=== PATIENT | male | born 1945 | race Caucasian/White ===

== ENCOUNTER 2018-12-16 15:25 | Emergency (ER) | payer MEDICARE, SELFPAY ==
[2018-12-16 15:35] VITALS: BP 122/65; PULSE 64; RESP 18; TEMP 37.5; O2SAT 96
--- NOTE | 2018-12-16 15:57 | W.ED.GENAD ---
Discharge Plan Disposition Patient Disposition: HOME Condition: Stable Discharge Details Chief Complaint: Orthopedic Clinical Impression: Arthritis of right knee Primary Care Provider: Efren Loya ED Provider: Cricket Jacobo Home Meds and New Rx's Prescriptions: Continued atorvastatin 40 mg Tablet 40 mg PO HS RF: 0 citalopram 10 mg Tablet 10 mg PO DAILY RF: 0 nitroglycerin [Nitrostat] 0.4 mg Tablet, Sublingual 1 mg Sublingual PRN PRNRF: 0 aspirin 81 mg Tablet,Chewable 81 mg PO DAILY RF: 0 metoprolol succinate 25 mg Tablet Extended Release 24 Hr 25 mg PO DAILY RF: 0 celecoxib [Celebrex] 100 mg Capsule 1 mg PO BID Qty: 30 RF: 0 Discharge Instructions Instructions: Arthritis (ED) Additional Instructions: follow up with your primary care provider as scheduled on December 27 if you have new symptoms such as fevers or severe worsening of pain return to the emergency department Medical Decision Making 72 yo male with 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 Denies any falls or trauma, no fevers. Has no erythema, warmth or swelling and no leg swelling or calf pain .Has full rom and able to bear weight so doubt fx .I suspect he does have djd, offered xray but he declined. Has no findings to suggest septic joint or dvt at this time. He can't get into his pcp for 10 or so days and staes he wants celebrex prescription which I will prescribe. Advied f/u with pcp and return precautions Differential Diagnosis osteoarthritis, gout HPI General Mode of arrival: ambulatory. Date/Time Provider Initiated Documentation: 12/16/18 15:46. Limitations to Documentation: no limitations. Information obtained by: patient. History of Present Illness 72 year old M presents to the emergency department with the chief complaint of right knee pain, described as moderate, Quality is described as aching, and is localized to the right and lower extremity. Patient reports no radiation. Patient started experiencing this year(s) (2) and it has been intermittent. No relieving factors improve symptom(s), No exacerbating factors reported . Patient notes no other symptoms.. Related Data Home Medications Medication Instructions Recorded Confirmed aspirin 81 mg PO DAILY 12/16/18 12/16/18 atorvastatin 40 mg PO HS 12/16/18 12/16/18 celecoxib [Celebrex] 1 mg PO BID #30 cap 12/16/18 citalopram 10 mg PO DAILY 12/16/18 12/16/18 metoprolol succinate 25 mg PO DAILY 12/16/18 12/16/18 nitroglycerin [Nitrostat] 1 mg SUBLINGUAL PRN PRN 12/16/18 12/16/18 Previous Rx's Medication Instructions Recorded celecoxib [Celebrex] 1 mg PO BID #30 cap 12/16/18 Allergies Allergy/AdvReac Type Severity Reaction Status Date / Time No Known Allergies Allergy Unverified 12/16/18 15:40 General Stated Complaint: Orthopedic KATHRYN: 4 Review of Systems Review of Systems All systems reviewed & are unremarkable except as noted in HPI and below Constitutional Denies chills, Denies fever(s) and Denies weakness ENT Denies change in voice Cardiovascular Denies chest pain and Denies dyspnea Respiratory Denies cough and Denies dyspnea Gastrointestinal Denies abdominal pain, Denies nausea and Denies vomiting Integumentary/Breasts Denies rash Neurologic Denies weakness [facility] Social History Smoking/Tobacco Use Status: Never Alcohol Intake: never Substance use type: does not use Do you feel safe at home: Yes Do you feel safe in your relationship?: Yes Exam Const General: no acute distress Orientation: alert HENMT Head: normal to inspection Ears: external ears normal General nose exam: external nose normal Mouth: moist mucous membranes Eyes General: appearance normal, both eyes and all related structures Neck Neck: normal visual inspection Resp Effort & Inspection: normal respiratory effort and able to speak in complete sentences Cardio Rate: regular rate Skin General skin exam: no rashes or lesions noted Neuro General: alert and oriented x3 Extrem General: normal to inspection Psych Mental Status: mental status grossly normal Course Vital Signs Temperature 37.5 C 12/16/18 15:35 Pulse 64 12/16/18 15:35 Respiratory Rate 18 12/16/18 15:35 Blood Pressure 122/65 12/16/18 15:35 Pulse Oximetry 96 12/16/18 15:35 Temperature 37.5 C 12/16/18 15:35 Temperature Source Temporal Artery Scan 12/16/18 15:35 Pulse 64 12/16/18 15:35 Respiratory Rate 18 12/16/18 15:35 Respiratory Effort 12/16/18 15:35 Blood Pressure 122/65 12/16/18 15:35 Blood Pressure Position Supine 12/16/18 15:35 Pulse Oximetry 96 12/16/18 15:35 Oxygen Delivery Method Room Air 12/16/18 15:35 Oxygen Flow Rate 0 12/16/18 15:35 Pain Level 6 12/16/18 15:35
--- NOTE | 2018-12-16 16:00 | ED.GENADUL_ITS ---
Discharge Plan Disposition Patient Disposition: HOME Condition: Stable Discharge Details Chief Complaint: Orthopedic Clinical Impression: Arthritis of right knee Primary Care Provider: Efren Loya ED Provider: Cricket Jacobo Home Meds and New Rx's Prescriptions: Continued atorvastatin 40 mg Tablet 40 mg PO HS RF: 0 citalopram 10 mg Tablet 10 mg PO DAILY RF: 0 nitroglycerin [Nitrostat] 0.4 mg Tablet, Sublingual 1 mg Sublingual PRN PRNRF: 0 aspirin 81 mg Tablet,Chewable 81 mg PO DAILY RF: 0 metoprolol succinate 25 mg Tablet Extended Release 24 Hr 25 mg PO DAILY RF: 0 celecoxib [Celebrex] 100 mg Capsule 1 mg PO BID Qty: 30 RF: 0 Discharge Instructions Instructions: Arthritis (ED) Additional Instructions: follow up with your primary care provider as scheduled on December 27 if you have new symptoms such as fevers or severe worsening of pain return to the emergency department Medical Decision Making 72 yo male with 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 Denies any falls or trauma, no fevers. Has no erythema, warmth or swelling and no leg swelling or calf pain .Has full rom and able to bear weight so doubt fx .I suspect he does have djd, offered xray but he declined. Has no findings to suggest septic joint or dvt at this time. He can't get into his pcp for 10 or so days and staes he wants celebrex prescription which I will prescribe. Advied f/u with pcp and return precautions Differential Diagnosis osteoarthritis, gout HPI General Mode of arrival: ambulatory . Date/Time Provider Initiated Documentation: 12/16/18 15:46 . Limitations to Documentation: no limitations . Information obtained by: patient . History of Present Illness 72 year old M presents to the emergency department with the chief complaint of right knee pain, described as moderate, Quality is described as aching, and is localized to the right and lower extremity. Patient reports no radiation. Patient started experiencing this year(s) (2) and it has been intermittent. No relieving factors improve symptom(s), No exacerbating factors reported . Patient notes no other symptoms.. Related Data Home Medications Medication Instructions Recorded Confirmed aspirin 81 mg PO DAILY 12/16/18 12/16/18 atorvastatin 40 mg PO HS 12/16/18 12/16/18 celecoxib [Celebrex] 1 mg PO BID #30 cap 12/16/18 citalopram 10 mg PO DAILY 12/16/18 12/16/18 metoprolol succinate 25 mg PO DAILY 12/16/18 12/16/18 nitroglycerin [Nitrostat] 1 mg SUBLINGUAL PRN PRN 12/16/18 12/16/18 Previous Rx's Medication Instructions Recorded celecoxib [Celebrex] 1 mg PO BID #30 cap 12/16/18 Allergies Allergy/AdvReac Type Severity Reaction Status Date / Time No Known Allergies Allergy Unverified 12/16/18 15:40 General Stated Complaint: Orthopedic KATHRYN: 4 Review of Systems Review of Systems All systems reviewed & are unremarkable except as noted in HPI and below Constitutional Denies chills, Denies fever(s) and Denies weakness ENT Denies change in voice Cardiovascular Denies chest pain and Denies dyspnea Respiratory Denies cough and Denies dyspnea Gastrointestinal Denies abdominal pain, Denies nausea and Denies vomiting Integumentary/Breasts Denies rash Neurologic Denies weakness [facility] Social History Smoking/Tobacco Use Status: Never Alcohol Intake: never Substance use type: does not use Do you feel safe at home: Yes Do you feel safe in your relationship?: Yes Exam Const General: no acute distress Orientation: alert HENMT Head: normal to inspection Ears: external ears normal General nose exam: external nose normal Mouth: moist mucous membranes Eyes General: appearance normal, both eyes and all related structures Neck Neck: normal visual inspection Resp Effort & Inspection: normal respiratory effort and able to speak in complete sentences Cardio Rate: regular rate Skin General skin exam: no rashes or lesions noted Neuro General: alert and oriented x3 Extrem General: normal to inspection Psych Mental Status: mental status grossly normal Course Vital Signs Temperature 37.5 C 12/16/18 15:35 Pulse 64 12/16/18 15:35 Respiratory Rate 18 12/16/18 15:35 Blood Pressure 122/65 12/16/18 15:35 Pulse Oximetry 96 12/16/18 15:35 Temperature 37.5 C 12/16/18 15:35 Temperature Source Temporal Artery Scan 12/16/18 15:35 Pulse 64 12/16/18 15:35 Respiratory Rate 18 12/16/18 15:35 Respiratory Effort 12/16/18 15:35 Blood Pressure 122/65 12/16/18 15:35 Blood Pressure Position Supine 12/16/18 15:35 Pulse Oximetry 96 12/16/18 15:35 Oxygen Delivery Method Room Air 12/16/18 15:35 Oxygen Flow Rate 0 12/16/18 15:35 Pain Level 6 12/16/18 15:35
== END 2018-12-16 16:10 | disposition home or self-care (01) ==
PROVIDERS: Emergency Provider Emergency Medicine; PCP Family Medicine
DX: M17.11 Unilateral primary osteoarthritis, right knee (principal)
CPT/HCPCS: 99283